=== PATIENT | male | born 1970 | race African-American/Black ===

== ENCOUNTER 2017-12-26 09:20 | Emergency (ER) | payer OTHER ==
[2017-12-26] MEDS ORDERED: ASPIRIN 81 MG TABLET, CHEWABLE PO ONE (09:39)
[2017-12-26 10:00] LABS: ABSOLUTE EOSINOPHILS # (AUTO) 0.4 10^3/uL (0.0-0.6); ABSOLUTE LYMPHOCYTES (AUTO) 1.7 10^3/uL (0.5-4.7); ABSOLUTE NEUT (AUTO) 9.2 10^3/uL (1.7-8.2); BASOPHILS % (AUTO) 0.3 % (0-2); EOSINOPHILS % (AUTO) 3.5 % (0-6); HEMATOCRIT 42.3 % (37.9-51.0); HEMOGLOBIN 14.1 g/dL (13.5-17.0); LYMPHOCYTES % (AUTO) 13.7 % (13-45); MEAN CORPUSCULAR HEMOGLOBIN 28.2 pg (27.0-33.4); MEAN CORPUSCULAR HGB CONC 33.2 g/dL (32.0-36.0); MEAN CORPUSCULAR VOLUME 85 fl (80-97); MONOCYTES % (AUTO) 7.9 % (3-13); PLATELET COUNT 225 10^3/uL (150-450); RED BLOOD COUNT 4.98 10^6/uL (4.35-5.55); RED CELL DISTRIBUTION WIDTH 13.3 % (11.5-14.0); SEGMENTED NEUTROPHILS % (AUTO) 74.6 % (42-78); TOTAL CELLS COUNTED % (AUTO) 100 %; WHITE BLOOD COUNT 12.3 10^3/uL (4.0-10.5)
--- NOTE | 2017-12-26 10:18 | RADIOLOGY REPORT (SQ) ---
EXAM DESCRIPTION: CHEST SINGLE VIEW COMPLETED DATE/TIME: 12/26/2017 9:57 am REASON FOR STUDY: cp COMPARISON: None. EXAM PARAMETERS: NUMBER OF VIEWS: One view. TECHNIQUE: Single frontal radiographic view of the chest acquired. RADIATION DOSE: NA LIMITATIONS: None. FINDINGS: LUNGS AND PLEURA: No opacities, masses or pneumothorax. No pleural effusion. MEDIASTINUM AND HILAR STRUCTURES: No masses. Contour normal. HEART AND VASCULAR STRUCTURES: Heart normal in size. Normal vasculature. BONES: No acute findings. HARDWARE: None in the chest. OTHER: No other significant finding. IMPRESSION: NO ACUTE RADIOGRAPHIC FINDING IN THE CHEST. TECHNICAL DOCUMENTATION: JOB ID: [id number] [employer]- All Rights Reserved Reading location - IP/workstation name: [email or web address]
[2017-12-26 10:21] LABS: ALANINE AMINOTRANSFERASE 28 U/L (21-72); ALBUMIN 3.6 g/dL (3.5-5.0); ALKALINE PHOSPHATASE 90 U/L (38-126); ANION GAP 6 (5-19); ASPARTATE AMINO TRANSFERASE 22 U/L (17-59); BILIRUBIN,DIRECT 0.4 mg/dL (0.0-0.4); BILIRUBIN,TOTAL 0.8 mg/dL (0.2-1.3); BLOOD UREA NITROGEN 11 mg/dL (7-20); CALCIUM 9.2 mg/dL (8.4-10.2); CARBON DIOXIDE 30 mmol/L (22-30); CHLORIDE 103 mmol/L (98-107); CREATINE KINASE 223 U/L (55-170); GLUCOSE 101 mg/dL (75-110); SODIUM 138.7 mmol/L (137-145); TOTAL PROTEIN 6.3 g/dL (6.3-8.2)
[2017-12-26 10:32] LABS: CREATINE KINASE MB 1.44 ng/mL (<4.55)
[2017-12-26 10:34] LABS: TROPONIN I < 0.012 ng/mL
[2017-12-26] MEDS ORDERED: LIDOCAINE 2% VISCOUS SOLN 20 ML UDCUP PO ONE (10:53)
[2017-12-26] MEDS ORDERED: MAG HYDROX/AL HYDROX/SIMETH SUSP 30 ML UDCUP PO ONE (10:53)
[2017-12-26] MEDS ORDERED: METOCLOPRAMIDE HCL ORAL SOLN 10 MG/10 ML UDCUP PO ONE (10:54)
--- NOTE | 2017-12-26 10:56 | ER Document Report ---
ED Cardiac - General Chief Complaint: Chest Pain Stated Complaint: SHORTNESS OF BREATH Time Seen by Provider: 12/26/17 10:42 Mode of Arrival: Ambulatory Information source: Patient Notes: Patient is a 47-year-old male who presents with chief complaint of chest pain, body aches and shortness of breath. Patient reports he has had midsternal chest pain that feels like a sharp stabbing pain for the last 4 days. Patient rates the pain 4/5 and states he has never had this type of pain before. Patient began having shortness of breath in the middle of the night which woke him up. Patient also complains of pain in his throat that feels like a scratching sensation. Patient is able to drink but he states it feels like there is something stuck there. Patient denies any recent incidences of choking. Patient reports associated dizziness, denies any nausea, vomiting or diarrhea. Patient has not had a history of fever or cough recently. Patient does have a history of acid reflux and occasional hypertension but does not take any medications. Patient is a smoker, drinks alcohol occasionally and denies any illicit drug use. TRAVEL OUTSIDE OF THE [place] IN LAST 30 DAYS: No - Related Data Allergies/Adverse Reactions: softshell seafood Allergy (Uncoded 12/26/17 09:31) G6PD Adverse Reaction (Uncoded 12/26/17 09:31) Past Medical History - General Information source: Patient - Social History Smoking Status: Current Every Day Smoker Chew tobacco use (# tins/day): No Drug Abuse: None Family History: Reviewed & Not Pertinent Patient has suicidal ideation: No Patient has homicidal ideation: No - Past Medical History Cardiac Medical History: Reports: Hx Hypertension Renal/ Medical History: Denies: Hx Peritoneal Dialysis Surgical Hx: Negative - Immunizations Immunizations up to date: Yes Review of Systems - Review of Systems Cardiovascular: Chest pain Respiratory: Short of breath -: Yes All other systems reviewed and negative Physical Exam - Vital signs Vitals: Temp Pulse Resp BP Pulse Ox 98.7 F 73 18 145/124 H 97 12/26/17 09:32 12/26/17 09:32 12/26/17 09:32 12/26/17 09:32 12/26/17 09:32 - Notes Notes: PHYSICAL EXAMINATION: GENERAL: Well-appearing, well-nourished and in no acute distress. HEAD: Atraumatic, normocephalic. EYES: Pupils equal round and reactive to light, extraocular movements intact, sclera anicteric, conjunctiva are normal. ENT: Nares patent, oropharynx clear without exudates. Moist mucous membranes. NECK: Normal range of motion, supple without lymphadenopathy LUNGS: Breath sounds clear to auscultation bilaterally and equal. No wheezes rales or rhonchi. HEART: Regular rate and rhythm without murmurs ABDOMEN: Soft, nontender, nondistended abdomen. No guarding, no rebound. No masses appreciated. Musculoskeletal: Normal range of motion, no pitting or edema. No cyanosis. NEUROLOGICAL: Cranial nerves grossly intact. Normal speech, normal gait. Normal sensory, motor exams PSYCH: Normal mood, normal affect. SKIN: Warm, Dry, normal turgor, no rashes or lesions noted. Course - Re-evaluation Re-evalutation: Chest x-ray is unremarkable. CBC, CMP and cardiac enzymes are within normal limits. EKG sinus rhythm rate of 77, normal axis, no ST segment elevations or worsens. Patient not having active chest pain while in the department. Patient does endorse pain in the lower part of his throat. Repeat troponin is negative. Patient reports some relief after the viscous lidocaine. Patient is tolerating p.o. and able to swallow without difficulty. Will refer patient to follow-up with gastroenterology to evaluate the sensation that he has in his throat. Patient given ED return precautions. - Vital Signs Vital signs: Temp Pulse Resp BP Pulse Ox 97.7 F 76 16 131/87 H 100 12/26/17 14:07 12/26/17 14:07 12/26/17 14:07 12/26/17 14:07 12/26/17 14:07 - Laboratory Result Diagrams: 12/26/17 09:45 12/26/17 09:45 Laboratory results interpreted by me: 12/26/17 12/26/17 09:45 09:45 WBC 12.3 H Absolute Neutrophils 9.2 H Creatine Kinase 223 H Discharge - Discharge Clinical Impression: Chest pain Qualifiers: Chest pain type: unspecified Qualified Code(s): R07.9 - Chest pain, unspecified Condition: Stable Disposition: HOME, SELF-CARE Additional Instructions: Chest Pain of Unclear Cause The exact cause of your chest pain isn't clear. Fortunately, there is no evidence of a dangerous medical condition. Further testing may be required to find the source of the pain. Most often, we find that this pain is coming from the chest wall -- the muscles or rib joints in the chest. But chest pain can come from the lung and lung lining, the esophagus, the heart valves or heart lining, and even the stomach or gallbladder. Rest. Eat lightly until the pain is gone. We may prescribe medicine for pain and inflammation. You should call the physician immediately if the pain radiates to the shoulder, jaw or arms; if you start to run a fever or develop a cough; or if you develop shortness of breath, or other new or alarming symptoms. Please follow-up with gastroenterology for the sensation you are feeling in your throat. Call them tomorrow to schedule an appointment. Please return to the emergency department should you develop worsening symptoms, vomiting or unable to swallow. Forms: Return to Work Referrals: ANKUR MCCAIN MD [ACTIVE STAFF] - Follow up as needed
--- NOTE | 2017-12-26 11:13 | EKG REPORT ---
SEVERITY:- NORMAL ECG - SINUS RHYTHM : Confirmed by: Pippa Sousa 26-Dec-2017 11:12:08
[2017-12-26 14:24] VITALS: BP 152/75
== END 2017-12-26 14:09 | disposition home or self-care (01) ==
LOC: ER 09:20
DX: R07.9 Chest pain, unspecified (principal); R06.02 Shortness of breath; R07.0 Pain in throat; R42 Dizziness and giddiness; I10 Essential (primary) hypertension; F17.200 Nicotine dependence, unspecified, uncomplicated; Z91.013 Allergy to seafood
CPT/HCPCS: 93005; 99285; 36415; 82553; 82550; 85025; 80053; 84484; 71045; 93010; J3490